=== PATIENT | female | born 1960 | race African-American/Black ===

== ENCOUNTER → 2016-05-27 | Day surgery (SDC) | payer BC ==
[~2016-05-27] VITALS: Ht 167.6 cm; Wt 96.6 kg
[2016-05-27] VITALS (13 sets, daily range): BP systolic 111–142; BP diastolic 67–80
[~2016-05-27] MED LIST: ATORVASTATIN CA10 MG ORAL; Alfentanil 2ml Inj ONE; Atropine Inj 1mg/10ml Syr IV PRN; Bupivacaine w/Epi 0.25% 30ml Vial INJ ONE; CALCIUM 500 +1 EAC3 PO; D5 1/2NS 1,000 ML IV SCH; DiphenhydrAMINE 50mg/ml Inj IVP PRN; EPINEPHrine 1mg/1ml Amp ONE; Hydromorphone 0.5mg/0.5ml inj IVP PRN; Ketamine 500mg Inj ONE; Ketorolac 30mg Inj IV PRN; Ketorolac 60mg Inj IV PRN; LETROZOLE2.5 MG ORAL; LORazepam Inj 2mg/ml 1ml IV PRN; LR 1000ml 1,000 ML IVLG SCH; LR 1000ml ONE; Labetalol 5mg/ml 20ml vial IV PRN; Lidocaine 1% MPF 10mg/ml 5ml ONE; METFORMIN HCL500 M1 ORAL; Meperidine 25mg/ml Inj IV PRN; Metoclopramide 10mg/2ml Inj IVP PRN; Midazolam 2mg/2ml Inj IVP PRN; Midazolam 2mg/2ml Inj ONE; Morphine Sulfate 2mg/ml Inj IVP PRN; NS Irrig 4000ml IRRIG ONE; Norco 5mg/325mg tab ORAL PRN; Norco 7.5mg/325mg tab ORAL PRN; Oxycodone/Acetaminophen 5-325 ORAL PRN; PT TO BRING LIST; Propofol 10mg/ml 20ml IV ONE; Ropivacaine 5mg/ml Vial 20ml INJ ONE; VENLAFAXINE H37.5 MG ORAL; ceFAZolin 1gm/50ml Premix 50 ML IV ONE; celeBREX 200mg Cap **SURGERY PATIENTS ONLY ORAL ONE; fentaNYL 100 mcg/2 mL IV PRN; oxyCONTIN 20mg tab ORAL ONE
--- NOTE | 2016-05-27 07:09 | Pre-Procedure Note/Attestation ---
Pre-Procedure Note/Attestation Complete Prior to Procedure Planned Procedure: right Procedure Narrative: shoulder arthroscopy, possible rc repair, sad Indications for Procedure Pre-Operative Diagnosis: right shoulder rct, impingement Attestation I attest that I discussed the nature of the procedure; its benefits; risks and complications; and alternatives (and the risks and benefits of such alternatives ), prior to the procedure, with the patient (or the patient's legal outreach representative). I attest that, if there was a reasonable possibility of needing a blood transfusion, the patient (or the patient's legal outreach representative) was given the [facility] standardized written summary, pursuant to the Valerio Erwin Blood Safety Act ([place] Health and Safety Code # 1645, as amended). I attest that I re-evaluated the patient just prior to the surgery and that there has been no change in the patient's H&P, except as documented below: SHEFALI JAMES May 27, 2016 07:09
--- NOTE | 2016-05-27 07:10 | Operative Note - PDOC ---
Operative Note Operative Note Pre-op Diagnosis: right shoulder rct, impingement Procedure: right shulder arthroscopy, sad, rct repair Post-op Diagnosis: same as pre-op plus Operative Findings: consistent w/pre-op dx studies Anesthesia: general Specimen: none Complications: none Condition: stable Estimated Blood Loss: none Implant(s) used?: No SHEFALI JAMES May 27, 2016 07:10
--- NOTE | 2016-05-27 08:54 | Anethesia Preoperative Eval ---
Anesthesia Pre-op PMH/ROS General Date of Evaluation: May 27, 2016 Time of Evaluation: 08:03 Anesthesiologist: Jimenez ASA Score: ASA 3 Mallampati Score Class I : Soft palate, uvula, fauces, pillars visible Class II: Soft palate, uvula, fauces visible Class III: Soft palate, base of uvula visible Class IV: Only hard plate visible Mallampati Classification: Class II Surgeon: Anton Diagnosis: R Shoulder Pain Surgical Procedure: R Shouldr Arthroscopy Anesthesia History: none Family History: no anesthesia problems Allergies: Coded Allergies: No Known Allergies (Unverified , 05/25/16) Medications: see eMAR Past Medical History Cardiovascular: Reports: HTN, other - HL Endocrine: Reports: DM Hematology/Immune: Reports: other - L Breast CA Other: obesity - BMI 35 PSxH Narrative: NICO, L Breast Bx Anesthesia Pre-op Phys. Exam Physician Exam Last Vital Signs Date Time Temp Pulse Resp B/P Pulse Ox O2 Delivery O2 Flow Rate FiO2 05/27/16 06:41 98.5 80 18 116/71 95 Room Air Constitutional: NAD Neurologic: CN 2-12 intact Cardiovascular: RRR Respiratory: CTA Gastrointestinal: S/NT/ND Airway Exam Mallampati Score: Class II MO: limited ROM: limited Teeth: missing Anesthesia Pre-op A/P Risk Assessment & Plan Assessment: ASA 3 Plan: GA, BIS, R Supraclavicular Block, Ultrasound Status Change Before Surgery: No Pre-Antibiotics Dru Grams Ancef IV Given Within 1 Hr of Incision: Yes Time Given: 08:21 Matt Gaona MD May 27, 2016 08:54
--- NOTE | 2016-05-27 10:00 | Immediate Post-Op Evaluation ---
Immediate Post-Op Evalulation Immediate Post-Op Evalulation Procedure: R Shouldr Arthroscopy, RCR Date of Evaluation: May 27, 2016 Time of Evaluation: 10:09 IV Fluids: 800 LR Blood Products: 0 Estimated Blood Loss: 25 Urinary Output: 0 Blood Pressure Systolic: 142 Blood Pressure Diastolic: 88 Pulse Rate: 64 Respiratory Rate: 16 O2 Sat by Pulse Oximetry: 100 Temperature (Fahrenheit): 97 Pain Score (1-10): 0 Nausea: No Vomiting: No Complications 0 Patient Status: awake, reacts, patent, extubated, none Hydration Status: adequate Dru Grams Ancef IV Given Within 1 Hr of Incision: Yes Time Given: 08:21 Matt Gaona MD May 27, 2016 10:00
--- NOTE | 2016-05-27 10:01 | 48 Hour Post Anesthesia Eval ---
Post Anesthesia Evaluation Procedure: R Shouldr Arthroscopy, RCR Date of Evaluation: May 27, 2016 Time of Evaluation: 12:13 Blood Pressure Systolic: 141 0: 87 Pulse Rate: 67 Respiratory Rate: 18 Temperature (Fahrenheit): 98.2 O2 Sat by Pulse Oximetry: 97 Airway: patent Nausea: No Vomiting: No Pain Intensity: 1 Hydration Status: adequate Cardiopulmonary Status: Stable Mental Status/LOC: patient returned to baseline Follow-up Care/Observations: 0 Post-Anesthesia Complications: 0 Follow-up care needed: ready to discharge Matt Gaona MD May 27, 2016 10:01
--- NOTE | 2016-05-28 01:29 | Operative Note - Dictated ---
DATE OF OPERATION: 05/27/2016 PREOPERATIVE DIAGNOSIS: Right shoulder rotator cuff tear. POSTOPERATIVE DIAGNOSES: 1. Right shoulder high-grade partial bursal side articular tear. 2. Impingement syndrome. PROCEDURES: 1. Right shoulder arthroscopy, extensive intra-articular debridement. 2. Right shoulder arthroscopic rotator cuff repair. 3. Right shoulder decompression bursectomy. SURGEON: Larry Walton M.D. ANESTHESIA: Right interscalene with general INDICATION FOR THE PROCEDURE: The patient is a pleasant female, who has had progressive right shoulder pain. She had MRI, which showed significant almost full-thickness rotator cuff tear. Given she had continued pain, difficulty with any odd activities, she elected to undergo right shoulder rotator cuff repair. Risks, limitations, expectations, and complications of procedure were discussed in detail. All questions addressed. DESCRIPTION OF PROCEDURE: An informed consent was obtained. The patient was taken to the operative room and placed under interscalene general anesthesia. The patient was then carefully placed in a beachchair position. Right shoulder was prepped and draped in a sterile manner. Time-out was performed. Ancef was administered. A standard lateral skin incision was then made. Camera was into the shoulder joint. The anterior labrum appeared to be intact along with articular surface. The subscapularis appeared to be intact along with the biceps tendon. The articular side of the rotator cuff including the footprint was intact. Once this was done, the camera was placed in the subacromial space. Complete bursectomy was performed. The growth of the thicker ligament was then released and the acromion was put on the internal aspect. The acromion was identified and acromioplasty was started from lateral to medial and completed from posterior to anterior. Once that was done, there was high grade bursal sided rotator cuff tear that extended to the significant portion of the footprint. The bone lateral to the articular margin was debrided. A margin convergence stitch was placed on the posterior aspect of the tendon along the infraspinatus. Then two arthroscopic mattress sutures were then placed along with lateral row. This secured the footprint. At this point, the camera was removed. Portal sites closed with 3-0 Monocryl sutures. Steri-Strips and a sterile dressing were applied. The patient was awoken and taken to recovery room with stable vital signs. ESTIMATED BLOOD LOSS: Minimal. COMPLICATIONS: None. SPECIMENS: None. IMPLANTS: Include 2 rotator cuff anchors. Larry Walton M.D. DR: CARLINE JOB#: [id number] CC:
== END | disposition home or self-care (01) ==
LOC: SUR 05:55
DX: M75.101 Unspecified rotator cuff tear or rupture of right shoulder, not specified as traumatic (principal); M75.41 Impingement syndrome of right shoulder; E11.9 Type 2 diabetes mellitus without complications; E78.5 Hyperlipidemia, unspecified; E04.1 Nontoxic single thyroid nodule; E66.9 Obesity, unspecified; Z68.35 Body mass index [BMI] 35.0-35.9, adult; Z85.3 Personal history of malignant neoplasm of breast; Z90.710 Acquired absence of both cervix and uterus
CPT/HCPCS: 29826; 29827; 82962; C1713; J0171; J0690; J2250; J2704; J2795; J3490; J7120; 94003; 94150